=== PATIENT | female | born 2005 | race Caucasian/White ===

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

== ENCOUNTER 2024-08-07 06:45 | Day surgery (SDC) | payer BC ==
[~2024-08-07] VITALS: Ht 152.4 cm; Wt 50.0 kg
[~2024-08-07 06:45] MED LIST: CeFAZolin Sodium 2,000 MG in NS 100 ML IV SCH; Lactated Ringer's 1,000 ML IV SCH
[2024-08-07 07:01] VITALS: BP 107/75
[2024-08-07] MEDS ORDERED: propofoL 40 ML IV ONE (07:04)
[2024-08-07] MEDS ORDERED: FentaNYL Citrate 50 MCG/ML 2 ML Injection ONE (07:04)
[2024-08-07] MEDS ORDERED: Bupivacaine 0.5% HCl 5 MG/ML 30MLVIAL ONE (07:06)
[2024-08-07] MEDS ORDERED: Lidocaine HCl 2% 20 ML MDV ONE (07:09)
[2024-08-07] MEDS ORDERED: Ondansetron HCl 2 MG / ML 2ML Vial IV PRN (07:20)
[2024-08-07] MEDS ORDERED: HYDROmorphone HCl/Pf 1MG SYR IV PRN ×2 (07:20)
[2024-08-07] MEDS ORDERED: FentaNYL Citrate 50 MCG/ML 2 ML Injection IV PRN ×2 (07:20)
[2024-08-07] MEDS ORDERED: Labetalol HCL 5 MG/ML 4ML Injection (Single Dose) IV PRN (07:20)
[2024-08-07] MEDS ORDERED: Albuterol 2.5 MG/3 ML VIAL INH PRN (07:20)
[2024-08-07] MEDS ORDERED: Droperidol 5 mg/2 ml Vial IV PRN (07:25)
[2024-08-07] MEDS ORDERED: Ketorolac Tromethamine 30mg Vial ONE (07:35)
[2024-08-07] MEDS ORDERED: Ondansetron HCl 2 MG / ML 2ML Vial ONE (07:35)
[2024-08-07] MEDS ORDERED: Dexamethasone Sod Phos 10 MG/ML 1ML VIAL ONE (07:35)
[2024-08-07] MEDS ORDERED: Bupivacaine 0.5% Inj 10 ML Vial ONE (07:55)
[2024-08-07] MEDS ORDERED: propofoL 20 ML IV ONE (07:55)
[2024-08-07 08:50] VITALS: BP 100/61; BP 96/70
[2024-08-07 09:00] VITALS: BP 93/62
[2024-08-07 09:05] VITALS: BP 94/68
[2024-08-07] MEDS ORDERED: HYDROcodone 5-APAP 325 TAB PO PRN (09:10)
[2024-08-07 09:20] VITALS: BP 108/74
[2024-08-07 09:23] VITALS: BP 114/74
--- NOTE | 2024-08-07 09:43 | NUR ---
D/C INSTRUCTIONS GIVEN TO PT & PT'S MOTHER, UNDERSTANDING VERBALIZED. PT DENIES PAIN/NAUSEA, VSS, ON RA. PT DRINKING ICE WATER W/O COMPLAINT. PT STATES READINESS TO GO HOME. PT BELONGINGS RETURNED TO PT, PT ON CELLPHONE. PT STATES SHE IS STEADY ENOUGH TO AMBULATE OUT TO MAIN ENTRANCE. THIS RN ACCOMPANIED PT & PT'S MOTHER TO MAIN ENTRANCE, STEADY GAIT NOTED UPON PT AMBULATION. NO VISIBLE SIGNS OF DISTRESS NOTED.
== END 2024-08-07 22:59 | disposition home or self-care (01) ==
LOC: ORSCMMR 06:45 → ORD 07:30 → ORSCMMR 07:30
PROVIDERS: Surgery
PROC: 0HBT0ZX Excision of Right Breast, Open Approach, Diagnostic (ICD-10-PCS; principal; 2024-08-07 07:30)
DX: N63.11 Unspecified lump in the right breast, upper outer quadrant (principal)
CPT/HCPCS: 88307; J0690; J1100; J1885; J2405; J2704; J3010; J7120